=== PATIENT | female | born 1945 | race Two or more races ===

== ENCOUNTER 2020-08-04 06:54 | Day surgery (SDC) | payer OTHER | END 2020-08-04 12:45 | disposition home or self-care (01) | LOC: AMB-ENDOS 06:54 | PROVIDERS: ATTEND Surgery | DX: K62.89 Other specified diseases of anus and rectum (principal); Z20.828 Contact with and (suspected) exposure to other viral communicable diseases ==

== ENCOUNTER 2020-09-14 09:00 | Inpatient (IN) | payer OTHER ==
[~2020-09-14] VITALS: Ht 160 cm; Wt 76.2 kg
[2020-09-14] MEDS ORDERED: ZYRTEC10 M3 PO (16:35)
[2020-09-14] MEDS ORDERED: SYNTHROID100 MCG PO (16:35)
[2020-09-14] MEDS ORDERED: FLONASE16 GM (16:35)
[2020-09-24] MEDS ORDERED: PRILOSEC OTC20 MG PO (14:10)
[2020-09-24] MEDS ORDERED: PERCOCET 5-3251 EACH PO (14:10)
== END 2020-09-24 17:31 | disposition home or self-care (01) | DRG 331 ==
LOC: SURH 09-21 08:00 → O/R 09-21 08:00 → SURH 09-21 10:30
PROVIDERS: ADMIT Surgery; ATTEND Surgery
PROC: 0DBN4ZZ Excision of Sigmoid Colon, Percutaneous Endoscopic Approach (ICD-10-PCS; 2020-09-21)
PROC: 0DTP4ZZ Resection of Rectum, Percutaneous Endoscopic Approach (ICD-10-PCS; principal; 2020-09-21 15:00)
DX: K57.30 Diverticulosis of large intestine without perforation or abscess without bleeding (principal); Z53.1 Procedure and treatment not carried out because of patient's decision for reasons of belief and group pressure; E03.9 Hypothyroidism, unspecified; I10 Essential (primary) hypertension